=== PATIENT | male | born 1970 | race Hispanic/Latino ===

== ENCOUNTER 2019-10-26 18:49 | Inpatient (IN) | payer OTHER ==
[~2019-10-26] VITALS: Ht 165.1 cm; Wt 71.2 kg
[2019-10-26 19:46] LABS: BASOPHILS % (AUTO) 0.2 % (0.0-5.0); EOSINOPHILS % (AUTO) 0.5 % (0.0-8.0); HEMATOCRIT 33.9 % (42-54); LYMPHOCYTES % (AUTO) 11.4 % (21.0-51.0); MEAN CORPUSCULAR HGB CONC 35.1 g/dL (32.0-36.0); MEAN CORPUSCULAR VOLUME 82.5 fL (79-99); MONOCYTES % (AUTO) 5.7 % (3.0-13.0); NEUTROPHILS % (AUTO) 81.5 % (40.0-77.0); PLATELET COUNT (AUTO) 327 K/uL (130-400); RED BLOOD CELL COUNT(AUTO) 4.11 MIL/uL (4.50-6.20); RED CELL DISTRIBUTION WIDTH 11.2 % (11.0-15.5); WHITE BLOOD COUNT (AUTO) 14.9 K/uL (4.8-10.8)
[2019-10-26 19:52] LABS: CREATININE 1.1 mg/dL (0.5-1.5); POTASSIUM 3.9 mmol/L (3.5-5.1)
[2019-10-26 19:57] LABS: ALBUMIN 2.7 g/dL (3.5-5.0); BILIRUBIN,TOTAL 0.7 mg/dL (0.2-1.0); TOTAL PROTEIN, SERUM 8.1 g/dL (6.0-8.3)
[2019-10-26 19:58] LABS: INR 0.92 (0.85-1.15); PARTIAL THROMBOPLASTIN TIME 30.2 SEC (26.3-35.5)
[2019-10-26 20:11] LABS: APPEARANCE,URINE Clear (CLEAR); BILIRUBIN,URINE Negative (NEGATIVE); COLOR,URINE Yellow (YELLOW); GLUCOSE, URINE (UA) >=1000 mg/dL (NEGATIVE); KETONES,URINE 40 mg/dL (NEGATIVE); LEUKOCYTE ESTERASE ,URINE Negative (NEGATIVE); NITRATE,URINE Negative (NEGATIVE); OCCULT BLOOD,URINE Negative (NEGATIVE); PROTEIN,URINE POS 1+ mg/dL (NEGATIVE)
[2019-10-26] MEDS ORDERED: ZOSYN 3.375GM+NS 50ML 50 ML IV ONE (20:19)
[2019-10-26] MEDS ORDERED: INSULIN HUMULIN R 100 UNIT/ML 3ML ONE (20:20)
[2019-10-26 20:24] LABS: BACTERIA,URINE Rare /HPF (None Seen); MUCUS,URINE Few LPF (None Seen); RBC,URINE 0-1 /HPF (0-1); SQUAMOUS EPITHELIAL CELL,UR 0-2 /HPF (0-2); WBC,URINE 0-1 /HPF (0-1)
[2019-10-26] MEDS ORDERED: VANCOMYCIN 1GM+NS 250ML 250 ML IV ONE (20:29)
[2019-10-26] MEDS ORDERED: TETANUS/DIPHTHERIA TOXOID [ADULT] 0.5 ML VIAL IM ONE ×2 (20:30→20:36)
[2019-10-26] MEDS: SODIUM CHLORIDE 0.9% 1000ML 1,000 ML IV SCH (21:18)
[2019-10-26] MEDS ORDERED: ACETAMINOPHEN 325 MG TAB PO PRN ×2 (21:30)
[2019-10-26] MEDS ORDERED: DIPHENHYDRAMINE HCL 25 MG CAPSULE PO PRN (21:30)
[2019-10-26] MEDS ORDERED: GLUCAGON 1MG KIT 1 MG ML IM PRN (21:30)
[2019-10-26] MEDS ORDERED: VANCOMYCIN PROTOCOL PER PHARMACY IV PRN (21:30)
[2019-10-26] MEDS ORDERED: NITROGLYCERIN 0.4 MG SL TAB SL PRN (21:30)
[2019-10-26] MEDS ORDERED: HYDROCODONE/ACETAMINOPHEN 5/325 MG TAB PO PRN ×2 (21:30)
[2019-10-26] MEDS ORDERED: DEXTROSE 50%-WATER 50 ML DISP.SYRIN IV PRN (21:30)
[2019-10-26] MEDS ORDERED: ONDANSETRON HCL 4 MG/2 ML VIAL IV PRN (21:30)
[2019-10-26 23:57] VITALS: BP 145/70
[2019-10-27 03:51] VITALS: BP 134/75
[2019-10-27] MEDS: ZOSYN 3.375GM+NS 50ML 50 ML IV SCH ×2 (04:00→05:00)
[2019-10-27] MEDS ORDERED: SODIUM CHLORIDE 0.9% 500ML 500 ML IV ONE (04:08)
[2019-10-27 05:23] LABS: BASOPHILS % (AUTO) 0.3 % (0.0-5.0); EOSINOPHILS % (AUTO) 0.2 % (0.0-8.0); HEMATOCRIT 33.9 % (42-54); LYMPHOCYTES % (AUTO) 10.2 % (21.0-51.0); MEAN CORPUSCULAR HEMOGLOBIN 28.9 pg (27.0-33.0); MEAN CORPUSCULAR HGB CONC 34.8 g/dL (32.0-36.0); MEAN CORPUSCULAR VOLUME 83.1 fL (79-99); MONOCYTES % (AUTO) 5.2 % (3.0-13.0); NEUTROPHILS % (AUTO) 83.5 % (40.0-77.0); PLATELET COUNT (AUTO) 343 K/uL (130-400); RED BLOOD CELL COUNT(AUTO) 4.08 MIL/uL (4.50-6.20); RED CELL DISTRIBUTION WIDTH 10.9 % (11.0-15.5); WHITE BLOOD COUNT (AUTO) 16.3 K/uL (4.8-10.8)
[2019-10-27 05:36] LABS: ALBUMIN 2.4 g/dL (3.5-5.0); BILIRUBIN,TOTAL 0.8 mg/dL (0.2-1.0); CREATININE 1.2 mg/dL (0.5-1.5); MAGNESIUM 1.7 mg/dL (1.80-2.40); POTASSIUM 3.8 mmol/L (3.5-5.1); TOTAL PROTEIN, SERUM 7.3 g/dL (6.0-8.3)
[2019-10-27 05:38] LABS: HEMOGLOBIN A1C 11.7 % (4.0-6.0)
[2019-10-27] MEDS: SODIUM CHLORIDE 0.9% 1000ML 1,000 ML IV SCH (07:18)
[2019-10-27] MEDS ORDERED: INSULIN HUMULIN R 100 UNIT/ML 3ML SQ SCH (07:30)
--- NOTE | 2019-10-27 08:30 | NUR ---
REPORT RECIEVED BY NURSE CRAWLEY . RN P[facility] , NURSE , REVIEW BOARD AND PLAN OF CARE. PT IS NPO PENDING A MRI RESULTS . OR PENDING PLAN SURGERY PER DR. GUNDERSON. PLAN OF CARE.
[2019-10-27 08:36] VITALS: BP 136/81
--- NOTE | 2019-10-27 08:50 | NUR ---
PT AAO X 3 REVIEW CARE, AND SOME DIABETIC EDUCATIONS RT FOOT COVER UP WITH A FOOT DRSG, STATED THAT HE GOT INFECTION TO HIS RT FOOT, DUE TO HIS WORK AND STATED THAT HIS FEET WERE ALWAY WET DUE TO HIS JOB. AND DID NOT KNOW ABOUT DIABETIC . And that it does not run in his family .. call l luis in reach .pe nding mri of the rt foot .
[2019-10-27] MEDS ORDERED: FAMOTIDINE 20MG TAB 20 MG TAB PO SCH (09:00)
[2019-10-27] MEDS ORDERED: ENOXAPARIN SODIUM 30 MG/0.3 ML SQ SCH (09:00)
[2019-10-27] MEDS ORDERED: VANCOMYCIN 1GM+NS 250ML 250 ML IV SCH (09:00)
--- NOTE | 2019-10-27 11:15 | NUR ---
DR. ROE BAJWA , SPOKE WITH REGARDING . RISK INVOLVE IN HIS CASE, IN DETAILS REGARDING DUE TO THE INFECTION TO HIS RT FOOT. DRAINAGE DISCOLORATION NOTED WITH SWELLING TO THE FOOT. PT ALSO STATED THAT HE DID NOT KNOW HE WAS A DIABETIC , DR.REVIEW WHAT THE PLAN OF CARE , AND THE MRI RESULTS. PT STILL WANTS TO GO AMA . DR. SELLERS HERE AND SPOKE WITH THE ALSO.
--- NOTE | 2019-10-27 11:25 | NUR ---
PT WENT AMA . SEE DISCHARGE AGAINST MEDICAL ADVICE DATA SL TO HIS RAC , NOTED NO HEMATOMA OR REDNESS TO SITE, DRSG TO HIS RT FOOT, IN PLace
== END 2019-10-27 11:30 | disposition left against medical advice (07) | DRG 872 ==
LOC: EDH 18:49 → EDHIP 20:30 → 4CH 23:11
PROVIDERS: ADMIT Family Medicine; ATTEND Family Medicine
PROC: 3E0234Z Introduction of Serum, Toxoid and Vaccine into Muscle, Percutaneous Approach (ICD-10-PCS; principal; 2019-10-26)
DX: A41.9 Sepsis, unspecified organism (principal); E11.52 Type 2 diabetes mellitus with diabetic peripheral angiopathy with gangrene; L03.115 Cellulitis of right lower limb; I96 Gangrene, not elsewhere classified; L02.611 Cutaneous abscess of right foot; E11.621 Type 2 diabetes mellitus with foot ulcer; Z53.29 Procedure and treatment not carried out because of patient's decision for other reasons; E11.65 Type 2 diabetes mellitus with hyperglycemia; R65.20 Severe sepsis without septic shock; I10 Essential (primary) hypertension; L97.519 Non-pressure chronic ulcer of other part of right foot with unspecified severity; Z83.3 Family history of diabetes mellitus; Z91.14 Patient's other noncompliance with medication regimen; Z23 Encounter for immunization
CPT/HCPCS: 36415; 73630; 73718; 80053; 81001; 82550; 82948; 83036; 83605; 83735; 84145; 84484; 85025; 85610; 85651; 85730; 86140; 87040; 87070; 87076; 87641; 90714; 93005; 93925; G0378; J1815; J2543; J3370; J7040